=== PATIENT | male | born 2000 | race Hispanic/Latino ===

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

== ENCOUNTER 2018-07-26 08:22 | Emergency (ER) | payer OTHER ==
[~2018-07-26] VITALS: Ht 182.9 cm; Wt 88.9 kg
--- OUTSIDE RECORDS SUMMARY | ~2018-07-26 | XMS | Clinical Summary ---
Demographics + + + | Address | [address] | | | [address] | | | [place] [address] | + + + | Home Phone | | + + + | Preferred Language | Unknown | + + + | Marital Status | Single | + + + | Sabianist Affiliation | Unknown | + + + | Race | Unknown | + + + | Ethnic Group | Unknown | + + + Author + + + | Author | [facility] | + + + | Organization | [facility] | + + + | Address | Unknown | + + + | Phone | Unavailable | + + + Support + + +---------+ + | Name | Relationship | Address | Phone | + + +---------+ + | Peggy Falk | ECON | Unknown | | + + +---------+ + Care Team Providers + +------+ + | Care Military Science Instructor Name | Role | Phone | + +------+ + PP | Unavailable | + +------+ + Allergies No Known Allergies Current Medications Not on file Active Problems + + + | Problem | Noted Date | + + + | Acute systolic heart failure (HCC) | 12/01/2017 | + + + | Traumatic pneumothorax | 12/01/2017 | + + + | Upper GI bleed | 11/30/2017 | + + + | Acute respiratory failure with hypoxia and hypercapnia (HCC) | 11/30/2017 | + + + | Intentional opiate overdose (HCC) | 11/30/2017 | + + + | Cardiac arrest (HCC) | 11/30/2017 | + + + | Metabolic encephalopathy | 11/30/2017 | + + + | Transaminitis | 11/30/2017 | + + + | Hyperglycemia | 11/30/2017 | + + + | Metabolic acidosis | 11/30/2017 | + + + | Polysubstance abuse | 11/30/2017 | + + + | Acute pulmonary edema (HCC) | 11/30/2017 | + + + | Aspiration pneumonitis (HCC) | 11/30/2017 | + + + | Hemoptysis | 11/30/2017 | + + + | Electrolyte imbalance | 11/30/2017 | + + + Immunizations + + + + | Name | Dates Previously Given | Next Due | + + + + | INFLUENZA PF, | 12/01/2017 (Deferred: ) | | | QUADRIVALENT | | | | (PED/ADOL/ADULT) | | | + + + + Social History + +-------+ +--------+------+ | Tobacco Use | Types | Packs/Day | Years | Date | | | | | Used | | + +-------+ +--------+------+ | Never Assessed | | | | | + +-------+ +--------+------+ + + + | Sex Assigned at | Date Recorded | | | | + + + | Not on file | | + + + Last Filed Vital Signs + + + + | Vital Sign | Reading | Time Taken | + + + + | Blood Pressure | 105/55 | 12/03/2017 12:51 PM PST | + + + + | Pulse | 82 | 12/03/2017 4:38 PM PST | + + + + | Temperature | 37.2 C (98.9 F) | 12/03/2017 4:38 PM PST | + + + + | Respiratory Rate | 18 | 12/03/2017 4:38 PM PST | + + + + | Oxygen Saturation | 98% | 12/03/2017 4:38 PM PST | + + + + | Inhaled Oxygen | - | - | | Concentration | | | + + + + | Weight | 79.7 kg (175 lb 12.8 | 12/02/2017 3:00 PM PST | | | oz) | | + + + + | Height | 180.3 cm (5' 11") | 11/30/2017 5:13 AM PST | + + + + | Body Mass Index | 24.52 | 12/02/2017 3:00 PM PST | + + + + Plan of Treatment Not on file Results Not on filefrom Last 3 Months Insurance + +--------+ +------+-------+ + | Payer | Benefi | Subscriber | Type | Phone | Address | | | t Plan | ID | | | | | | / | | | | | | | Group | | | | | + +--------+ +------+-------+ + | MEDICAID | MEDICA | [id number] | | | [address] | | | ID | | | | [place] | | | [place] | | | | [phone] | + +--------+ +------+-------+ + + +--------+ +--------+ + + | Guarantor Name | Accoun | Relation to | Date | Phone | Billing Address | | | t Type | Patient | of | | | | | | | | | | + +--------+ +--------+ + + | DEVONTE MCNEILL | Person | Self [birth year] Home: | [address] | | | al/Fam | | 1999 | [phone] | [address] [facility] [facility] [place] | | | [place] | | [phone] | + +--------+ +--------+ + +
--- OUTSIDE RECORDS SUMMARY | ~2018-07-26 | XMS | Clinical Summary ---
Demographics + + + | Address | [address] | | | [address] | | | [place] [address] | + + + | Home Phone | | + + + | Preferred Language | Unknown | + + + | Marital Status | Single | + + + | Evangelical Affiliation | Unknown | + + + | Race | Unknown | + + + | Ethnic Group | Unknown | + + + Author + + + | Author | [facility] | + + + | Organization | [facility] | + + + | Address | Unknown | + + + | Phone | Unavailable | + + + Support + + +---------+ + | Name | Relationship | Address | Phone | + + +---------+ + | Peggy Falk | ECON | Unknown | | + + +---------+ + Care Team Providers + +------+ + | Care Fourdrinier Wire Weaver Name | Role | Phone | + [...] +------+-------+ + | MEDICAID | MEDICA | [id number] | | | [address] | | | ID | | | | [place] | | | [place] | | | | [phone] | + +--------+ +------+-------+ + + +--------+ [...] | | 1999 | [phone] | [address] [place] | | | [place] | | | [phone] | + +--------+ +--------+ + +
[~2018-07-26 08:22] MED LIST: LEVAQUIN750 MG PO
== END 2018-07-26 14:14 | disposition home or self-care (01) ==
LOC: ED 08:22
DX: H53.2 Diplopia (principal); F17.200 Nicotine dependence, unspecified, uncomplicated
CPT/HCPCS: 70450; 70496; 70498; 80053; 85025; 85651; 99284; Q9967

== ENCOUNTER 2018-08-07 22:33 | Emergency (ER) | payer OTHER ==
[~2018-08-07] VITALS: Ht 182.9 cm; Wt 88.9 kg
--- OUTSIDE RECORDS SUMMARY | 2018-08-07 22:38 | XMS ---
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 E.[facility] VISIT COUNT (12 MO.) 4 [facility] TOTAL 4 NOTE: Visits indicate total known visits. ED/UCC VISIT TRACKING (12 MO.) 08/07/2018 22:34 [facility] [place] TYPE: Emergency COMPLAINT: - OVERDOSE 07/26/2018 08:22 [facility] [place] TYPE: Emergency COMPLAINT: - L EYE PAIN/NO INJURY DIAGNOSES: - Diplopia - Nicotine dependence, unspecified, uncomplicated - Ocular pain, left eye 06/07/2018 00:13 [facility] [place] TYPE: Emergency COMPLAINT: - LACERATION DIAGNOSES: - Laceration without foreign body of right front wall of thorax without penetration into thoracic cavity, initial encounter - Other nonmedicinal substance allergy status - Nicotine dependence, unspecified, uncomplicated - Other fall from one level to another, initial encounter 12/04/2017 18:[address] [facility] [place] TYPE: Emergency COMPLAINT: - POSS SEPSIS DIAGNOSES: - Nicotine dependence, unspecified, uncomplicated - Cough - Pneumonia, unspecified organism INPATIENT VISIT TRACKING (12 MO.) No inpatient visits to display in this time frame [email or web address]
== END 2018-08-07 23:39 | disposition home or self-care (01) ==
LOC: ED 22:33
DX: T40.601A Poisoning by unspecified narcotics, accidental (unintentional), initial encounter (principal); F17.200 Nicotine dependence, unspecified, uncomplicated
CPT/HCPCS: 99285

== ENCOUNTER 2023-09-18 11:44 | Emergency (ER) | payer OTHER ==
[~2023-09-18] VITALS: Ht 182.9 cm; Wt 88.9 kg
[~2023-09-18 11:44] MED LIST changes: +CEPHALEXIN500 MG PO
[2023-09-18 13:11] VITALS: BP 120/63
== END 2023-09-18 13:11 | disposition home or self-care (01) ==
LOC: ED 11:44
DX: K62.5 Hemorrhage of anus and rectum (principal); F17.200 Nicotine dependence, unspecified, uncomplicated
CPT/HCPCS: 99283

== ENCOUNTER 2024-01-04 20:46 | Emergency (ER) | payer OTHER ==
[~2024-01-04] VITALS: Ht 182.9 cm; Wt 87.0 kg
[2024-01-04] MEDS ORDERED: propofoL 100 ML IV ONE (20:49)
[2024-01-04 21:12] LABS: BILIRUBIN, URINE NEGATIVE (negative); BLOOD/HGB, URINE NEGATIVE (Negative); KETONE, URINE NEGATIVE (Negative); LEUK ESTERASE, URINE NEGATIVE (negative); NITRITE, URINE NEGATIVE (negative)
[2024-01-04] MEDS ORDERED: propofoL 100 ML IV SCH (21:15)
[2024-01-04 21:18] LABS: BASOPHILS 0.6 % (0-2); EOSINOPHILS 0.5 % (0-6); LYMPHOCYTES 19.7 % (24-44); MCH 28.9 (27-36); MCV 82.5 fl (81-99); MONOCYTES 5.1 % (0-12); NEUTROPHILS 74.1 % (39-80); PLATELET COUNT 247 K/uL (140-440); RBC 4.85 M/ul (4.3-5.7); RDW 13.2 (10.5-15.0)
[2024-01-04] MEDS ORDERED: MIDAZOLAM HCL 2 MG/2 ML VIAL ONE (21:18)
[2024-01-04 21:29] LABS: AMPHETAMINES, URINE NEGATIVE (NEGATIVE); BARBITURATES, URINE NEGATIVE (NEGATIVE); BENZODIAZEPINE, URINE POSITIVE (NEGATIVE); BUPRENORPHINE, URINE NEGATIVE (NEGATIVE); CANNABINOID, URINE NEGATIVE (NEGATIVE); COCAINE, URINE NEGATIVE (NEGATIVE); ECSTASY, URINE NEGATIVE (NEGATIVE); FENTANYL, URINE POSITIVE (NEGATIVE); METHADONE, URINE NEGATIVE (NEGATIVE); OPIATES, URINE NEGATIVE (NEGATIVE); OXYCODONE, URINE NEGATIVE (NEGATIVE); PHENCYCLIDINE, URINE NEGATIVE (NEGATIVE)
[2024-01-04] MEDS ORDERED: levETIRAcetam 500 MG/5 ML VIAL IV ONE (21:30)
[2024-01-04] MEDS ORDERED: MIDAZOLAM HCL 2 MG/2 ML VIAL IV ONE ×2 (21:30→21:45)
[2024-01-04] MEDS ORDERED: MIDAZOLAM HCL 50 MG in DEXTROSE 5% 90 ML IV SCH (21:30)
[2024-01-04 21:32] LABS: ALBUMIN/GLOBULIN RATIO 1.29 (1.1-2.4); ALCOHOL, MEDICAL <3 ng/dL (<3); ALKALINE PHOSPHATASE 60 U/L (46-116); ALT (SGPT) 18 U/L (14-59); ANION GAP 12.5 (7-21); AST (SGOT) 16 U/L (15-37); BILIRUBIN, TOTAL 0.3 ng/dL (0.2-1.0); BUN/CREATININE RATIO 12.94 (6.0-28.6); CALCIUM 8.4 mg/dL (8.5-10.1); CARBON DIOXIDE 27 mmol/L (21-32); CHLORIDE 104 mmol/L (98-107); CREATINE KINASE 171 U/L (39-308); CREATININE, SERUM 0.85 mg/dL (0.70-1.30); GLOMERULAR FILTRATION RATE,EST 124 mL/min (>60); POTASSIUM 3.5 mmol/L (3.5-5.1); PROTEIN, TOTAL 7.1 g/dL (6.4-8.2); UREA NITROGEN 11 mg/dL (7-18)
[2024-01-04] MEDS ORDERED: fentaNYL citrate 100 MCG/2 ML VIAL ONE (21:47)
[2024-01-04 21:54] LABS: ABO A; ANTIBODY SCREEN NEGATIVE; RH POSITIVE
[2024-01-04] MEDS ORDERED: fentaNYL citrate 100 MCG/2 ML VIAL IV ONE (22:00)
[2024-01-04 22:07] LABS: AMYLASE 55 U/L (25-115)
[2024-01-04] MEDS ORDERED: ETOMIDATE 40 MG/20 ML VIAL IV ONE (22:30)
[2024-01-04] MEDS ORDERED: SODIUM CHLORIDE 0.9% 1,000 ML IV SCH (22:45)
[2024-01-04] MEDS ORDERED: DIPHTH,PERTUSS(ACELL),TET VAC 0.5 ML SYRINGE IM ONE (23:00)
[2024-01-04] MEDS ORDERED: PIPERACILLIN/TAZOBACTAM 4.5 GM VIAL ONE (23:26)
[2024-01-04] MEDS ORDERED: PIPERACILLIN/TAZOBACTAM 4.5 GM in DEXTROSE 5% 100 ML IV ONE (23:30)
[2024-01-05 01:05] VITALS: BP 137/72
== END 2024-01-05 01:05 | disposition left against medical advice (07) ==
LOC: ED 20:46
PROVIDERS: Family Medicine
DX: T17.818A Gastric contents in other parts of respiratory tract causing other injury, initial encounter (principal); S01.81XA Laceration without foreign body of other part of head, initial encounter; Z53.29 Procedure and treatment not carried out because of patient's decision for other reasons; F17.200 Nicotine dependence, unspecified, uncomplicated; W10.9XXA Fall (on) (from) unspecified stairs and steps, initial encounter; Y92.149 Unspecified place in prison as the place of occurrence of the external cause
CPT/HCPCS: 36415; 70450; 71045; 71260; 72125; 74177; 80053; 80307; 81003; 82150; 82553; 83605; 83690; 85025; 86850; 86900; 86901; 90715; G0480; J1953; J2250; J2543; J2704; J3010; J7030; Q9967